=== PATIENT | male | born 1995 | race Two or more races ===

== ENCOUNTER 2025-02-09 18:27 | Emergency (ER) | payer MEDICAID, SELFPAY ==
[2025-02-09 18:47] VITALS: BP 146/85; PULSE 73; RESP 17; TEMP 36.9; O2SAT 96; BMI 19.8
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
--- NOTE | 2025-02-09 19:19 | XR_ITS ---
Examination: Forearm, right, 2 views. Technique: Forearm, AP, lateral 2 views Date and time of exam: February 09, 2025, 192 hrs. Indications: Patient fell today with laceration of forearm, forearm pain. Findings: Soft tissue defect on the ulnar side of the forearm No fracture No opaque foreign body Impression: No opaque foreign body
[2025-02-09] MEDS: KETOROLAC INJ 60 MG/2 ML VIAL 30 MG IM (19:24)
[2025-02-09] MEDS: DIPHTH,PERTUSS(ACELL),TET VAC 0.5 ML SYR- ADULT IMi (21:08)
== END 2025-02-09 21:35 | disposition home or self-care (01) ==
PROVIDERS: Emergency Provider Emergency Medicine
DX: S51.811A Laceration without foreign body of right forearm, initial encounter (principal); W01.110A Fall on same level from slipping, tripping and stumbling with subsequent striking against sharp glass, initial encounter; Y99.0 Civilian activity done for income or pay; Z23 Encounter for immunization
CPT/HCPCS: 12002; 73090; 80053; 85025; 90471; 90715; 96372; 99284; J1885